=== PATIENT | male | born 1950 | race Caucasian/White ===

== ENCOUNTER 2021-07-02 17:03 | Emergency (ER) | payer MEDICARE, SELFPAY ==
--- NOTE | ~2021-07-02 | XR_ITS ---
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 A heterotopic ossification projects posterior to the olecranon on the lateral view of the distal humerus. There is soft tissue swelling of the elb ow. IMPRESSION: 1. Possible avulsion fracture of the olecranon. Reviewed, dictated and finalized at location A.
--- NOTE | ~2021-07-02 | XR_ITS ---
EXAMINATION: XR elbow RT min 3V INDICATION: Right elbow pain, initial encounter TECHNIQUE: Four views of the right elbow were obtained. COMPARISON: None available FINDINGS: A heterotopic ossification projects posterior to the olecranon on the lateral view of the d istal humerus. There is posterior soft tissue swelling of the elbow Olecranon. No joint effusion is identified. IMPRESSION: 1. Possible avulsion fracture of the olecranon. Reviewed, dictated and finalized at location A.
[2021-07-02 17:55] VITALS: BP 164/103; PULSE 77; RESP 16; TEMP 36.6; O2SAT 99
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
== END 2021-07-02 20:03 | disposition home or self-care (01) ==
PROVIDERS: Emergency Provider Emergency Medicine; PCP Internal Medicine
DX: S52.021A Displaced fracture of olecranon process without intraarticular extension of right ulna, initial encounter for closed fracture (principal); Z85.828 Personal history of other malignant neoplasm of skin
CPT/HCPCS: 73060; 73080; 99284; A4565

== ENCOUNTER → 2021-07-13 03:11 | Outpatient (CLI) | payer MEDICARE, SELFPAY ==
[2021-07-13 18:29] LABS: SARS-CoV-2 RNA PCR Positive
== END ==
PROVIDERS: PCP Internal Medicine; Visit Provider Physician Assistant
DX: U07.1 COVID-19 (principal)
CPT/HCPCS: C9803; U0003; U0005

== ENCOUNTER 2021-07-14 11:53 | Outpatient (RCR) | payer MEDICARE, SELFPAY ==
[2021-07-14] MEDS: ACETAMINOPHEN 325 MG TABLET 650 MG PO (13:45)
[2021-07-14] MEDS: FAMOTIDINE 20 MG TABLET PO (13:45)
[2021-07-14] MEDS: diphenhydrAMINE HCl CAP 25 MG CAPSULE PO (13:45)
[2021-07-14 14:04] VITALS: BP 162/92; PULSE 67; RESP 18; TEMP 36.8; O2SAT 98
[2021-07-14 15:04] VITALS: BP 163/91
== END 2021-07-14 15:53 | disposition home or self-care (01) ==
LOC: AMCINF 11:53
PROVIDERS: PCP Physician Assistant; Referring Provider Physician Assistant; Visit Provider Internal Medicine Hematology & Oncology
DX: Z23 Encounter for immunization (principal); U07.1 COVID-19; I10 Essential (primary) hypertension
CPT/HCPCS: A9270; M0243; Q0243

== ENCOUNTER 2021-09-23 08:34 | Outpatient (CLI) | payer MEDICARE, SELFPAY ==
--- NOTE | 2021-09-23 08:46 | ECHO_ITS ---
Patient Info Name: Ruy Feliz Age: 71 years : 1950 Gender: Male Ht: 74 in Wt: 215 lbs BSA: 2.27 m2 HR: 65 bpm BP: 164 / 103 mmHg Technical Quality: Good Exam Date: 09/23/2021 8:59 AM Exam Location: [facility] Patient Status: Outpatient Admit Date: 09/23/2021 Staff Ordering Physician: Rashad De La Cruz DO Cleater: Rhona Sutton RDCS Attending Provider: Rashad De La Cruz DO Referring Physician: Dorothy MASON; Exam Type: CA echo doppler color flow Study Info Indications I10 - Essential (primary) hypertension Complete two-dimensional, color flow and Doppler transthoracic echocardiogram is performed. Summary 1. Complete two-dimensional, color flow and Doppler transthoracic echocardiogram is performed. 2. Left ventricular chamber dimension is normal. 3. Left ventricular systolic function is normal, estimated at 60-65%. 4. The left ventricular diastolic function is grade I diastolic dysfunction. 5. E/e' 8 is minimally elevated. 6. Global longitudinal strain is abnormal at -13.5%. 7. There is mild aortic valve sclerosis. 8. There is mild mitral valve regurgitation. 9. There is trace tricuspid valve regurgitation. 10. No pulmonary hypertension, estimated pulmonary arterial systolic pressure is 25 mmHg. Left Ventricle E/e' 8 is minimally elevated. Global longitudinal strain is abnormal at -13.5%. Left ventricular chamber dimension is normal. Left ventricular systolic function is normal, estimated at 60-65%. The left ventricular diastolic function is grade I diastolic dysfunction. Right Ventricle Right ventricular chamber dimension is normal. Right ventricular systolic function is normal. Left Atria Left atrial chamber dimension is normal. Right Atria Right atrial chamber dimension is normal. Aortic Valve The aortic valve is trileaflet. There is mild aortic valve sclerosis. There is no aortic valve stenosis. There is no aortic valve regurgitation. Pulmonic Valve There is no pulmonic regurgitation. Mitral Valve There is no mitral valve stenosis. There is mild mitral valve regurgitation. Tricuspid Valve There is trace tricuspid valve regurgitation. No pulmonary hypertension, estimated pulmonary arterial systolic pressure is 25 mmHg. Pericardium/Pleural There is no pericardial effusion. Inferior Vena Cava Normal inferior vena cava with >50% collapse upon inspiration consistent with normal right atrial pressure, 5 mmHg. Aorta The aortic root size at the sinus of Valsalva is normal. Left Ventricular Outflow Tract Name Value Normal LVOT 2D LVOT Diameter 2.1 cm LVOT Doppler LVOT Peak Gradient 5 mmHg LVOT Mean Gradient 2 mmHg LVOT VTI 21 cm LVOT VTI/AV VTI Ratio 1.0 LVOT Stroke Volume 75 ml LVOT CO 15.1 l/min LVOT CI 6.7 l/min/m2 Pulmonic Valve Nam
== END 2021-09-23 08:35 | disposition home or self-care (01) ==
LOC: ANHCARD 08:36
PROVIDERS: PCP Internal Medicine; Visit Provider Internal Medicine
DX: I10 Essential (primary) hypertension (principal)
CPT/HCPCS: 93306

== ENCOUNTER 2022-04-26 02:19 | Day surgery (SDC) | payer MEDICARE, SELFPAY ==
[2022-04-11 15:24] VITALS: BMI 27.7
[2022-04-26 07:45] VITALS: BP 134/77; PULSE 61; RESP 18; TEMP 36.2; O2SAT 98
[2022-04-26] MEDS: LACTATED RINGERS 1,000 ML 150 ML IV CONT (07:52)
--- NOTE | 2022-04-26 08:03 | PM.IMHP ---
H&P: HPI History of Present Illness Date/Time: 04/26/22 08:03 Chief Complaint: History of colon polyps. Narrative: This is a 71-year-old white male patient presents for screening colonoscopy. Patient has a prior history of colon polyps. Most recently 2015. Patient reports his current weight appetite and bowel movements are normal. Patient denies abdominal pain. He has had no bleeding. Family history noncontributory. Review of Systems Review of Systems: Review of systems noncontributory. [facility] Past Medical History Medical History (Updated 04/26/22 @ 08:04 by Osvaldo Gallegos MD) Squamous cell skin cancer (~12/2019) Social History Social History Smoking status: Never smoker Second hand tobacco smoke exposure: No Alcohol intake: current Drinks per week: 20 Alcohol use details: BEERS Substance use: never Substance use type: does not use Living arrangements: with family Spiritual care concerns: No Meds Home Medications and Allergies Home Medications Medication Instructions Recorded Confirmed Type calcium polycarbophil 625 mg 1,250 mg PO BID 01/21/20 04/11/22 History tablet (FiberCon) sildenafil 50 mg tablet (Viagra) 50 mg PO DAILY PRN Erectile 01/21/20 04/11/22 History Dysfunction hydrocodone 5 mg-acetaminophen 325 1 tablet PO Q6H PRN pain #10 tabs 07/02/21 04/11/22 Rx mg tablet hydrochlorothiazide 12.5 mg tablet 25 mg PO DAILY #180 tabs 12/13/21 04/11/22 Rx diltiazem HCl 360 mg capsule,24 360 mg PO DAILY #90 caps 12/15/21 04/11/22 Rx hr,extended release tamsulosin 0.4 mg capsule 0.4 mg PO DAILY #90 caps 12/15/21 04/11/22 Rx fexofenadine 60 mg tablet (Olivia 60 mg PO Q12H 01/28/22 04/11/22 History Allergy) lisinopril 40 mg tablet 40 mg PO DAILY #90 tabs 04/17/22 04/26/22 Rx Allergies Allergy/AdvReac Type Severity Reaction Status Date / Time No Known Allergies Allergy NONE Verified 04/26/22 07:44 Vital Signs Vital Signs - 24 hr 08/16/22 07:45 Temperature 97.2 F L Pulse Rate 61 Respiratory Rate 18 Blood Pressure 134/77 Pulse Oximetry 98 Oxygen Delivery Room Air Exam Narrative: Physical exam reveals patient to be alert. Vital signs stable. HEENT exam is unremarkable. Patient is anicteric. Lungs are clear to auscultation and percussion. Heart is without murmur or extra sounds. Abdominal exam bowel sounds present soft nontender with no organomegaly. Digital external rectal exam is normal. Assessment and Plan Assessment and plan (1) History of colon polyps: Code(s): Z86.010 - Personal history of colonic polyps Status: Acute Assessment and Plan: Patient has a history of colon polyps. Removed from the colon by colonoscopy 2016. Plan is for surveillance colonoscopy now. Consider this at 5 year intervals in the future.
[2022-04-26] MEDS: SIMETHICONE ORAL SUSPENSION 20 MG/0.3 ML 30 ML BOTTLE 0.6 ML IRRIGATION (08:29)
[2022-04-26 08:40] VITALS: BP 93/56; PULSE 55; RESP 18; O2SAT 94
[2022-04-26 08:50] VITALS: BP 96/49; PULSE 55; RESP 18; O2SAT 96
[2022-04-26 09:00] VITALS: BP 88/47; PULSE 58; RESP 18; O2SAT 96
[2022-04-26 09:10] VITALS: BP 83/49; PULSE 50; RESP 18; O2SAT 96
[2022-04-26 09:20] VITALS: BP 88/55; PULSE 59; RESP 18; O2SAT 96
--- NOTE | 2022-04-26 15:19 | SUR.PHASEII ---
1515 Patient's called Jessica regarding patient's condition after being discharged. Jessica stated that her has a really sore throat and is having difficulty swallowing and is running a 102 fever. She mentioned that they were told the patient had a lot of secretions and he had a bronchospasm during the procedure. I instructed Jessica to take him to the nearest ER. Jessica asked what they could do for him. I offered to call and talk with the anesthesiologist and see what he had to say. I told Jessica I would call her back as soon as I finished talking with him. 1519 Dr. Evans called and spoke with him regarding patient's condition and the discussion I had with the spouse Jessica. Dr. Evans looked at the patient's anesthesia record from today and we discussed the patient having a laryngospasm during the case. Dr. Evans encouraged me to tell the spouse if she was concerned and if he was running a 102 fever then she should take him to the nearest ER. 1523 I call Jessica back and left a message on her voicemail to call me back. 1525 I called Jessica again. Jessica said she re-took her temperature with a skin therometer and she got a reading of 98.9. I asked her if she felt his forehead if he felt like he was hot or running a fever. She said he didn't feel hot to her. We discussed his condition including his sore throat and the reasons why his throat was sore and some therapies to help like taking ice chips, tylenol for discomfort, drinking cool water liquids. Jessica said her told her that he took and Olivia before his procedure today. She said he is still have a lot of secretions. I encouraged Jessica to take him the to the nearest ER if he spiked a fever or continued to run a fever or if his condition worsened. Jessica said she would watch him and see how he does and at this time they would hold of with going to the ER. I told her we would call them tomorrow to check on him..
== END 2022-04-26 09:37 | disposition home or self-care (01) ==
PROVIDERS: PCP Internal Medicine; Visit Provider Internal Medicine Gastroenterology
PROC: 0DJD8ZZ Inspection of Lower Intestinal Tract, Via Natural or Artificial Opening Endoscopic (ICD-10-PCS; CPT 45378; principal; 2022-04-26 09:00)
DX: Z12.11 Encounter for screening for malignant neoplasm of colon (principal); K64.8 Other hemorrhoids; K57.30 Diverticulosis of large intestine without perforation or abscess without bleeding; Z86.010 Personal history of colon polyps
CPT/HCPCS: G0105; J2704; J7120

== ENCOUNTER 2022-05-02 11:21 | Outpatient (CLI) | payer MEDICARE, SELFPAY ==
--- NOTE | ~2022-05-02 | XR_ITS ---
EXAMINATION: XR chest 2V DATE: 05/02/2022 11:53 INDICATION: Cough. TECHNIQUE: Frontal and lateral views of the chest were obtained. COMPARISON: None. FINDINGS: There is mild atelectasis at the lung bases. No pleural effusion or pneumothorax. The heart size is normal. IMPRESSION: 1. Mild atelectasis at the lung bases. Reviewed, dictated and finalized at location A.
== END 2022-05-02 11:22 | disposition home or self-care (01) ==
LOC: ANHIMG 11:24
PROVIDERS: PCP Internal Medicine; Visit Provider Internal Medicine
DX: R05.9 Cough, unspecified (principal); J98.11 Atelectasis
CPT/HCPCS: 71046

== ENCOUNTER 2023-07-25 07:53 | Outpatient (CLI) | payer MEDICARE, SELFPAY ==
--- NOTE | ~2023-07-25 | US_ITS ---
EXAMINATION: US soft tissue groin LT DATE: 07/25/2023 08:32 INDICATION: Unilateral inguinal hernia without obstruction. Left groin lump. TECHNIQUE: Multiple grayscale and Doppler ultrasound images of the left groin were obtained. COMPARISON: None FINDINGS: There is a left inguinal hernia containing fat. IMPRESSION: 1. Left inguinal hernia containing fat. Reviewed, dictated and finalized at location A. 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
== END 2023-07-25 07:54 | disposition home or self-care (01) ==
LOC: ANHIMG 07:57
PROVIDERS: PCP Internal Medicine; Visit Provider Physician Assistant
DX: K40.90 Unilateral inguinal hernia, without obstruction or gangrene, not specified as recurrent (principal)
CPT/HCPCS: 76882

== ENCOUNTER 2024-02-25 08:15 | Emergency (ER) | payer MEDICARE, SELFPAY ==
[2024-02-25 08:58] VITALS: BP 115/75; PULSE 55; RESP 18; TEMP 36.2; O2SAT 96
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
[2024-02-25] MEDS: TETANUS,DIPHTHERIA,AC PERTUSSIS ADULT (0.5 ML) BOOSTRIX IM (09:25)
== END 2024-02-25 09:34 | disposition home or self-care (01) ==
PROVIDERS: Emergency Provider Nurse Practitioner; PCP Internal Medicine
DX: S51.002A Unspecified open wound of left elbow, initial encounter (principal); W22.8XXA Striking against or struck by other objects, initial encounter; Z23 Encounter for immunization; Z85.828 Personal history of other malignant neoplasm of skin
CPT/HCPCS: 90471; 90715; 99213; G0463

== ENCOUNTER 2025-03-17 09:00 | Outpatient (CLI) | payer MEDICARE, SELFPAY ==
--- OUTSIDE RECORDS SUMMARY | 2025-03-17 09:13 | XMS_ITS | Patient Health Record ---
Author Organization [facility] Address [address] [place] [address] Care Team Providers Care Demolition Engineer Name Role Phone Chavo Farmer Primary Care Provider Reason For Referral No Information Immunizations Vaccine Route Administration Date Status Comme nts COVID-19 Moderna 2nd IM Intramuscular 11/12/2020 Administered COVID-19 Moderna 1ST IM Intramuscular 10/15/2020 Administered EUA provided. Screening and consent reviewed and signed. Pt tolerated well. Plan Of Treatment No Information Insurance Providers Payer Name Payer Address Payer Phone Subscriber Number Group Number Insured Name Patient Relationship to Insured Coverage Start Date Coverage End Date MEDICARE PART A [address] [place] [id number] [id number] Ruy Feliz Self - patient is the insured 6
--- OUTSIDE RECORDS SUMMARY | 2025-03-17 09:13 | XMS_ITS | Clinical Summary ---
Author Organization [facility] Address [address] [place] [address] Phone Care Team Providers Care Offshore Diver Name Role Phone Rashad De La Cruz DO Primary Care Provider [phone] AshlyOsvaldo wheeler DO Unavailable [phone] Allergies No known active allergies Medications polyethylene glycol (MIRALAX) Powder Use entire 255g bottle with 64oz of clear liquid as directed for colonoscopy prep. 255 g 0 7 Active LISINOPRIL PO Take by mouth. A ctive DilTIAZem HCl ER Beads (TAZTIA XT PO) Take by mouth. Active TAMSULOSIN HCL PO Take by mouth. Activ e Loratadine-Pseu doephedrine (CLARITIN-D 12 HOUR PO) Take by mouth. Activ e Immunizations Immunization Administration Dates Next Due Covid-19, Mrna, Lnp-s, PF, 1 00 mcg/0.5 mL Dose (Moderna) 11/12/2020,10/15/2020 Family History Medical History Relation Name Comments Cancer Brother Pancreatic Lung Cancer Father Hypertension Mother Relation Name Status Comments Brother Father Mother Social History Tobacco Use Types Packs/Day Years Used Date Smoking Tobacco: Never Smokeless Tobacco: Never Alcohol Use Standard Drinks/Week Comments Yes 0 (1 standard drink = 0.6 oz pur e alcohol) Sex and Gender Information Value Date Recorded Sex Assigned at Not on file Legal Sex Male 12:03 AM CDT Gender Identity Not on file Sexual Orientation Not on file Plan of Treatment Health Maintenance Due Date Last Done Comments Hepatitis C Virus (HCV) Screening 1950 TdaP Immunization 1950 Cologuard 1996 Immunochemical Fecal Occult Blood 1996 Colonoscopy 02/01/2022 02/01/2017 Colorectal Cancer Screening 02/01/2022 SARS-COV-2 Immunization ( season) 2024 02/11/2022, 09/29/2021, 11/12/2020, Additional history exists Influenza Immunization (#1) 2025 05/12/2020 Respiratory Syncytial Virus (RSV) Immunization (Adult) (1 - 1-dose 75+ series) 2026 DTaP/Tdap/Td Immunization Discontinued 03/24/2013 Pneumococcal Immunization (50+ years) Completed 07/16/2020, 06/20/2019 Pneumococcal Immunization Combined Discontinued 07/16/2020, 06/20/2019 Zoster Immunization Completed 08/18/2020, 0 Hepatitis B Immunization Aged Out No longer eligible based on patient's age to complete this topic Human Papillomavirus (HPV) Immunization Aged Out No longer eligible based on patient's age to complete this topic Meningococcal Immunization (ACWY) Aged Out No longer eligible based on patient's age to complete this topic Rotavirus Immunization Aged Out No lo nger eligible based on patient's age to complete this topic Procedures Procedure Name Priority Date/Time Associated Diagnosis Comments COLONOSCOPY Routine 02/01/2017 from Last 3 Months or Most Recently Relevant to Health Maintenance Results * COLONOSCOPY (02/01/2017) Rashad De La Cruz DO PROCEDURE/MINOR SURGICAL OR DERABLES Final Result from Last 3 Months or Most Recently Relevant to Health Maintenance Insurance MEDICARE [facility] Care Teams Offshore Diver Relationship Specialty Start Date End Date Rashad De La Cruz DO [address] [place] [address] PCP - General Internal Medicine 09/29/16 Osvaldo Jenkins DO [address] [place] [address] Consulting Physician Gastroenterology 02/01/17
--- NOTE | 2025-03-17 09:25 | ECG_ITS ---
Test Date: 2025-03-17 09:36:21 Measurements Intervals [place] Rate: 51 P: 0 ME: 0 QRS: -54 QRSD: 132 T: -20 QT: 441 QTc: 408 Interpretive Statements sinus bradycardia FIRST DEGREE AV BLOCK INTRAVENTRICULAR CONDUCTION DELAY [130+ ms QRS DURATION] No previous ECG available for comparison Electronically Signed On 03-17-2025 22:20:12 CDT by Santa Melo M.D.
[2025-03-17 09:53] LABS: Anion Gap 9 mmol/L (4-12); Blood Urea Nitrogen 12 mg/dL (9-20); Calcium 9.5 mg/dL (8.4-10.2); Carbon Dioxide 26 mmol/L (22-30); Chloride 99 mmol/L (98-107); Estimated Glomerular Filt Rate 54; Glucose 111 mg/dL (65-110); Potassium 4.2 mmol/L (3.4-5.0); Sodium 134 mmol/L (137-145)
[2025-03-17 09:57] LABS: INR 1.1; Prothrombin Time 14.5 Seconds (11.1-14.7)
[2025-03-17 09:58] LABS: Partial Thromboplastin Time 28.8 Seconds (22.3-36.8)
== END 2025-03-17 09:01 | disposition home or self-care (01) ==
LOC: ANHSURGERY 09:03
PROVIDERS: Anesthesiology; PCP Internal Medicine; Visit Provider Surgery
DX: K40.90 Unilateral inguinal hernia, without obstruction or gangrene, not specified as recurrent (principal); E78.49 Other hyperlipidemia; Z01.818 Encounter for other preprocedural examination; I12.9 Hypertensive chronic kidney disease with stage 1 through stage 4 chronic kidney disease, or unspecified chronic kidney disease; N18.31 Chronic kidney disease, stage 3a
CPT/HCPCS: 36415; 80048; 85610; 85730; 86850; 86900; 86901; 93005

== ENCOUNTER 2025-03-18 02:43 | Day surgery (SDC) | payer MEDICARE, SELFPAY ==
[2025-03-13 09:24] VITALS: BMI 29.4
--- NOTE | 2025-03-13 09:34 | PC.NURSE ---
Report to the Outpatient Waiting Room, entrance under the green pavilion located off [facility], at time __11:00am on date ___03/18/25____. Planned Procedure Time: __1:00pm .? Time changes happen often and if your time is changed the preop area will call you the afternoon before. - You and your visitor will be asked to self-screen and do not enter if you have any COVID symptoms. Please call surgeon if you need to reschedule. - A mask is optional within the hospital at this time. Patients may have clear liquids (water, carbonated beverages, clear teas, apple juice) until 3 hours prior to surgery with a maximum of 20 ounces. - No food from midnight until time of surgery and no smoking, or chewing tobacco (or any form of nicotine). No chewing gum, candy or mints. (10:00am) Take only the following medications with a SIP of water on the morning of surgery: Tylenol if needed DO NOT STOP ANY OF YOUR OTHER PRESCRIPTION MEDICATIONS PRIOR TO SURGERY EXCEPT THE FOLLOWING Hold all vitamins and supplements for 3 days per anesthesiologist. Date of last dose 03/14/25 Medications to discontinue per physician NONE Date to take last dose NONE Please no make-up, nail kazakh, hairspray, perfume, deodorant, or body powder the day of surgery.? No jewelry (including any body piercings) or valuables the day of surgery, leave them at home.? Please take a shower or bath the night before, or the morning of, surgery with an antibacterial soap.? Wear comfortable, loose fitting clothing.? - Jewelry must be removed prior to entering the operating room.? Rings and piercings that are not removed may be cut off. - The hospital will not accept responsibility for valuables.? - Please leave all valuables, including medications, at home the day of surgery. If you are going home after surgery, a licensed driver medic must drive you home.? - NO public transportation without another adult if you receive anesthesia. - We recommend that an adult stay with you for 24 hours following discharge. - We also recommend that you do not drive, make important decision, drink alcoholic beverages, or take any drugs that were not prescribed by your health care provider for at least 24 hours after your discharge time. Follow any additional instructions given to you from your surgeon. Telephone instructions given to ___Patient and asked if any additional questions and then verbalized understanding. Patient advised to call surgeon office or pre surgery nurse liaison [phone] if any additional questions.
[2025-03-18] VITALS (12 sets, daily range): BP systolic 121–151; BP diastolic 71–95; PULSE 55–73; RESP 14–19; TEMP 36.1–36.9; O2SAT 95–100; BMI 28.7
--- OUTSIDE RECORDS SUMMARY | 2025-03-18 02:46 | XMS_ITS | Encounter Summary ---
Author Organization 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 Gender Identity Not on file Sexual Orientation Not on file documented as of this encounter Plan of Treatment Not on file documented as of this encounter Procedures Procedure Name Priority Date/Time Associated Diagnosis Comments DERMATOPATHOLOGY Routine 11/28/2019 12:0 0 AM CDT documented in this encounter Results * DERMATOPATHOLOGY (11/28/2019 12:00 AM CDT) Case Report Dermatopathology Report Case: [id number] Authorizing Provider: Serafin Dunn MD Collected: 11/28/2019 12:00 AM Ordering Location: [facility] DermPath Lab Received: 11/28/2019 02:13 PM Pathologist: Sanna Thornton MD Specimen: Skin, left lower leg 0 1:31 PM CDT DERMATOPATHOLOGY LABORATORY Final Diagnosis Specimen A. SKIN, left lower leg: SQUAMOUS CELL CARCINOMA, WELL DIFFERENTIATED (C44.729) 0 1:31 PM CDT DERMATOPATHOLOGY LABORATORY at 1331 CDT Clinical History SCCA. Path # [id number]. 0 1:31 PM CDT DERMATOPATHOLOGY LABORATORY Gross Description Specimen A: Received is one formalin filled container labeled with the patient's name and designated left lower leg. The specimen consists of a shave biopsy measuring [id number]. Jar 0. 0 1:31 PM CDT DERMATOPATHOLOGY LABORATORY Microscopic Description Specimen A. SKIN, left lower leg: Arising in the epidermis and extending into the dermis there are irregularly shaped aggregates of keratinocytes showing evidence of premature cornification. 0 1:31 PM CDT DERMATOPATHOLOGY LABORATORY Disclaimer An external and internal positive and negative controls are appropriate for the histochemical, immunohistochemical and immunofluorescence stain(s) in this case (if any), except where stated explicitly. The performance characteristics of the stain(s) cited in this report were developed and its performance characteristic determined by the Dermatopathology Laboratory at [facility], directed by Dr. Winnie Harvey. These tests need not be, and therefore are not, approved by the [place] Food and Drug Administration. The tests are used for clinical purposes. Billing Codes Specimen Charges Stain Charges 08677 1 0 1:31 PM CDT DERMATOPATHOLOGY LABORATORY Embedded Images 0 1:31 PM CDT DERMATOPATHOLOGY LABORATORY Pathology/Cytolog y TISSUE SPECIMEN FROM SKIN / Unknown 11/28/2019 11/28/2019 2:13 PM CDT us Serafin Dunn MD LAB - PATHOLOGY/CYTOLOGY ORDER DIMA Final Result DERMATOPATHOLOGY LABORATORY [facility] - Department of Dermatology [address]th [place] [address], [facility] [phone] documented in this encounter Visit Diagnoses Not on filedocumented in this encounter Care Teams Roast Master Relationship Specialty Start Date End Date Rashad De La Cruz DO [address] [place] [address] PCP - General 10/09/18 documented as of this encounter
--- OUTSIDE RECORDS SUMMARY | 2025-03-18 02:46 | XMS_ITS | Encounter Summary ---
Author Organization [facility] Address [address] [place] [address] Care Team Providers Care Street Car Inspector Name Role Phone Rashad De La Cruz DO Primary Care Provider Encounter Details Date Type Department Care Team (Late st Contact Info) Description 02/18/2020 Lab Requisition [facility] DermPath Lab [address] [place] [address] Serafin Dunn MD [address] [place] [place] [address] Social History Tobacco Use Types Packs/Day Years Used Date Smoking Tobacco: Never Assessed Sex and Gender Information Value Date Recorded Sex Assigned at Not on file Legal Sex Male 8:24 AM [employer] Gender Identity Not on file Sexual Orientation Not on file documented as of this encounter Plan of Treatment Not on file documented as of this encounter Procedures Procedure Name Priority Date/Time Associated Diagnosis Comments DERMATOPATHOLOGY Routine 02/14/2020 12:0 0 AM CDT documented in this encounter Results * DERMATOPATHOLOGY (02/14/2020 12:00 AM CDT) Case Report Dermatopathology Report Case: [id number] Authorizing Provider: Serafin Dunn MD Collected: 02/14/2020 12:00 AM Ordering Location: [facility] DermPath Lab Received: 02/18/2020 09:48 AM Pathologist: Katie Lu MD Specimen: Skin, right thigh 0 1:44 PM CDT DERMATOPATHOLOGY LABORATORY Final Diagnosis Specimen A. SKIN, right thigh: SQUAMOUS CELL CARCINOMA, WELL DIFFERENTIATED (C44.722) 0 1:44 PM CDT DERMATOPATHOLOGY LABORATORY at 1344 CDT Clinical History [facility]A vs [facility]. Path# [id number] 0 1:44 PM CDT DERMATOPATHOLOGY LABORATORY Gross Description Specimen A: Received is one formalin filled container labeled with the patient's name and designated right thigh. The specimen consists of a shave biopsy measuring 8x7x4 mm, bisected. Jar 0. 0 1:44 PM CDT DERMATOPATHOLOGY LABORATORY Microscopic Description Specimen A. SKIN, right thigh: Arising in the epidermis and extending into the dermis there are irregularly shaped aggregates of keratinocytes showing evidence of premature cornification. 0 1:44 PM CDT DERMATOPATHOLOGY LABORATORY Disclaimer An external and internal positive and negative controls are appropriate for the histochemical, immunohistochemical and immunofluorescence stain(s) in this case (if any), except where stated explicitly. The performance characteristics of the stain(s) cited in this report were developed and its performance characteristic determined by the Dermatopathology Laboratory at [facility], directed by Dr. Winnie Harvey. These tests need not be, and therefore are not, approved by the [place] Food and Drug Administration. The tests are used for clinical purposes. Billing Codes Specimen Charges Stain Charges 07747 1 0 1:44 PM CDT DERMATOPATHOLOGY LABORATORY Embedded Images 0 1:44 PM CDT DERMATOPATHOLOGY LABORATORY Pathology/Cytolog y TISSUE SPECIMEN FROM SKIN / Unknown 02/14/2020 02/18/2020 9:48 AM CDT Serafin Dunn MD LAB - PATHOLOGY/CYTOLOGY ORDER DIMA Final Result DERMATOPATHOLOGY LABORATORY [facility] - Department of Dermatology [address] [facility] [address], [facility] [phone] documented in this encounter Visit Diagnoses Not on filedocumented in this encounter Care Teams Street Car Inspector Relationship Specialty Start Date End Date Rashad De La Cruz DO [address] [place] [address] PCP - General 10/09/18 documented as of this encounter
--- OUTSIDE RECORDS SUMMARY | 2025-03-18 02:46 | XMS_ITS | Clinical Summary ---
Author Organization [facility] Address [address] [place] [address] Phone Care Team Providers Care Mechanical Shovel Operator Name Role Phone Rashad De La Cruz DO Primary Care Provider AshlyOsvaldo wheeler DO Unavailable [phone] Allergies No known active allergies Medications [...] Recently Relevant to Health Maintenance Insurance MEDICARE [facility] Care Teams Mechanical Shovel Operator Relationship Specialty Start Date End Date Rashad De La Cruz DO [address] [place] [address] PCP - General Internal Medicine 09/29/16 Osvaldo Jenkins DO [address] [place] [address] Consulting Physician Gastroenterology 02/01/17
--- OUTSIDE RECORDS SUMMARY | 2025-03-18 02:46 | XMS_ITS | Clinical Summary ---
Author Organization [facility] Address [address] [place] [address] Care Team Providers Care Double Bottom Driver Name Role Phone Rashad De La Cruz DO Primary Care Provider [phone] Source Comments [facility] [employer],non-owned Affiliates and Associated Physician Practices is amultiple site organization consisting of ambulatory clinics and hospital sitesin [place], [place], [place] and [place]. This disclosure is being madepursuant to the Care Everywhere program and may not contain all information available regarding this patient. 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 Gender Identity Not on file Sexual Orientation Not on file Plan of Treatment Health Maintenance Due Date Last Done Comments COLOGUARD (AGES 45-75) - COL ON CA SCREENING 1950 COLON MONITORING 1950 COLONOSCOPY - COLON CA SCREENING 1950 CT COLONOGRAPHY - COLON CA SCREENING 1950 Colorectal Cancer Screening 1950 FIT - COLON CA SCREENING 1950 FLEX SIG - COLON CA SCREENING 1950 LIPID TESTING 1950 MEDICARE AWV 12 MONTHS 1950 HEPATITIS C SCREENING 04/25/1969 DTAP/TDAP/TD VACCINES (1 - Tdap) 1970 PNEUMOCOCCAL VACCINE 50+ (1 of 1 - PCV) 2001 ZOSTER VACCINE (1 of 2) 2001 COVID-19 VACCINE ( - 2023-2 5 season) 2024 DEPRESSION SCREENING 09/11/2024 INFLUENZA VACCINE (#1) 2025 Respiratory Syncytial Virus (RSV) Vaccine Pt: or over 60 yrs (1 - 1-dose 75+ series) 2026 HEPATITIS B VACCINE Aged Out No longe r eligible based on patient's age to complete this topic HIB VACCINE Aged Out No longer eligi ble based on patient's age to complete this topic HPV VACCINE Aged Out No longer eligi ble based on patient's age to complete this topic MENINGOCOCCAL (Group B) VACC INE SHARED DECISION-MAKING Aged Out No longer eligibl e based on patient's age to complete this topic MENINGOCOCCAL GROUPS A/C/Y/W VACCINE Aged Out No longer eligible b ased on patient's age to complete this topic Insurance MEDICARE [facility] Address: [address] [place] [address] MEDICARE ANTHEM Care Teams Double Bottom Driver Relationship Specialty Start Date End Date Rashad De La Cruz DO [address] [place] [address] PCP - General 10/09/18
--- OUTSIDE RECORDS SUMMARY | 2025-03-18 02:46 | XMS_ITS | Patient Health Record ---
Author Organization [facility] Address [address] [place] [address] Care Team Providers Care Bumper Operator Name Role Phone Chavo Farmer Primary Care [...] A [address] [place] [address] [id number] Ruy Feliz Self - patient is the insured 6
--- OUTSIDE RECORDS SUMMARY | 2025-03-18 02:46 | XMS_ITS | Encounter Summary ---
Author Organization [facility] Address [address] [place] [address] Care Team Providers Care Hotel Administrative Assistant Name Role Phone Rashad De La Cruz DO Primary Care Provider Encounter Details Date Type Department Care Team (Late st Contact Info) Description 06/12/2023 Lab Requisition [facility] - DermPath Lab [address] [place] [id number] Serafin Dunn MD [address] [place] [address] Social History Tobacco Use Types Packs/Day Years Used Date Smoking Tobacco: Never Assessed Sex and Gender Information Value Date Recorded Sex Assigned at Not on file 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 DermPath Lab Received: 06/12/2023 04:26 PM Pathologist: Joanna Walker MD Specimen: Skin, right confucianism 12:59 PM CDT DERMATOPATHOLOGY LABORATORY Final Diagnosis Specimen A. SKIN, right confucianism: ACTINIC KERATOSIS, ERODED (L57.0) 12:59 PM CDT DERMATOPATHOLOGY LABORATORY at 1259 CDT Clinical History BCCA vs SCCA. Path# [id number] 12:59 PM CDT DERMATOPATHOLOGY LABORATORY Gross Description Specimen A: Received is one formalin filled container labeled with the patient's name and designated right confucianism. The specimen consists of a shave biopsy measuring 6x5x1 mm. Jar 0. 12:59 PM CDT DERMATOPATHOLOGY LABORATORY Microscopic Description Specimen A. SKIN, right confucianism: There is alternating orthokeratosis and parakeratosis. The epidermis is focally eroded. Along the undersurface of the epidermis, there are buds of atypical keratinocytes in a disorderly arrangement. 12:59 PM CDT DERMATOPATHOLOGY LABORATORY Disclaimer An external and internal positive and negative controls are appropriate for the histochemical, immunohistochemical and immunofluorescence stain(s) in this case (if any), except where stated explicitly. The performance characteristics of the stain(s) cited in this report were developed and its performance characteristic determined by the Dermatopathology Laboratory at [facility], directed by Dr. Winnie Harvey. These tests need not be, and therefore are not, approved by the [place] Food and Drug Administration. The tests are used for clinical purposes. Billing Codes Specimen Charges Stain Charges 59095 1 12:59 PM CDT DERMATOPATHOLOGY LABORATORY Embedded Images 12:59 PM CDT DERMATOPATHOLOGY LABORATORY Pathology/Cytolog y TISSUE SPECIMEN FROM SKIN / Unknown 06/12/2023 06/12/2023 4:26 PM CDT us Serafin Dunn MD LAB - PATHOLOGY/CYTOLOGY ORDER DIMA Final Result DERMATOPATHOLOGY LABORATORY [facility] - Department of Dermatology [address] [phone] documented in this encounter Visit Diagnoses Not on filedocumented in this encounter Care Teams Hotel Administrative Assistant Relationship Specialty Start Date End Date Rashad De La Cruz DO [address] [place] [address] PCP - General 10/09/18 documented as of this encounter
--- OUTSIDE RECORDS SUMMARY | 2025-03-18 02:46 | XMS_ITS | Encounter Summary ---
Author Organization [facility] Address [address] [place] [address] Care Team Providers Care Polymerization Supervisor Name Role Phone Rashad De La Cruz DO Primary Care Provider Encounter Details Date Type Department Care Team (Late st Contact Info) Description 09/27/2022 Lab Requisition [facility] DermPath Lab [address] [place] [address] Serafin Dunn MD [address] [place] [address] Social History Tobacco Use Types Packs/Day Years Used Date Smoking Tobacco: Never Assessed Sex and Gender Information Value Date Recorded Sex Assigned at Not on file 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 Gender Identity Not on file Sexual Orientation Not on file documented as of this encounter Plan of Treatment Not on file documented as of this encounter Procedures Procedure Name Priority Date/Time Associated Diagnosis Comments DERMATOPATHOLOGY Routine 09/26/2022 12:0 0 AM POACHER WRINGER OPERATOR documented in this encounter Results * DERMATOPATHOLOGY (09/26/2022 12:00 AM POACHER WRINGER OPERATOR) Case Report Dermatopathology Report Case: [id number] Authorizing Provider: Serafin Dunn MD Collected: 09/26/2022 12:00 AM Ordering Location: [facility] DermPath Lab Received: 09/27/2022 07:22 AM Pathologist: Joanna Walker MD Specimen: Skin, right lat canthus 3 1:40 PM POACHER WRINGER OPERATOR DERMATOPATHOLOGY LABORATORY Final Diagnosis Specimen A. SKIN, right lat canthus: SQUAMOUS CELL CARCINOMA IN SITU, WITH ADNEXAL EXTENSION, PRESENT AT THE BASE OF THE SPECIMEN (D04.39) (see microscopic description and comment) 3 1:40 PM [facility] DERMATOPATHOLOGY LABORATORY at 1340 POACHER WRINGER OPERATOR Clinical History [place] vs BCCA vs SCCA Path# [id number] 3 1:40 PM [facility] DERMATOPATHOLOGY LABORATORY Gross Description Specimen A: Received is one formalin filled container labeled with the patient's name and designated right lat canthus. The specimen consists of a shave biopsy measuring 7x4x1 mm. Jar 0. 3 1:40 PM [facility] DERMATOPATHOLOGY LABORATORY Microscopic Description Specimen A. SKIN, right lat canthus: The epidermis shows parakeratosis, full thickness disorderly maturation of keratinocytes, mitoses at different levels, and dyskeratotic cells. The proliferation extends down adnexal structures. The lesion extends to the base of the biopsy. Additional deeper sections were obtained and reviewed. COMMENT: An invasive squamous cell carcinoma cannot be ruled out. 3 1:40 PM [facility] DERMATOPATHOLOGY LABORATORY Disclaimer An external and internal positive and negative controls are appropriate for the histochemical, immunohistochemical and immunofluorescence stain(s) in this case (if any), except where stated explicitly. The performance characteristics of the stain(s) cited in this report were developed and its performance characteristic determined by the Dermatopathology Laboratory at [facility], directed by Dr. Winnie Harvey. These tests need not be, and therefore are not, approved by the [place] Food and Drug Administration. The tests are used for clinical purposes. Billing Codes Specimen Charges Stain Charges 11376 1 3 1:40 PM [facility] DERMATOPATHOLOGY LABORATORY Embedded Images 3 1:40 PM [facility] DERMATOPATHOLOGY LABORATORY Pathology/Cytolog y TISSUE SPECIMEN FROM SKIN / Unknown 09/26/2022 09/27/2022 7:22 AM POACHER WRINGER OPERATOR us Serafin Dunn MD LAB - PATHOLOGY/CYTOLOGY ORDER DIMA Final Result DERMATOPATHOLOGY LABORATORY [facility] - Department of Dermatology [address], [address] [phone] documented in this encounter Visit Diagnoses Not on filedocumented in this encounter Care Teams Polymerization Supervisor Relationship Specialty Start Date End Date Rashad De La Cruz DO [address] [facility] [address] [address] [place] [address] PCP - General 10/09/18 documented as of this encounter
--- OUTSIDE RECORDS SUMMARY | 2025-03-18 02:46 | XMS_ITS | Clinical Summary ---
Author Organization [facility] Address [facility] [place] [address] Care Team Providers Care Rod Finisher Name Role Phone Unavailable Primary Care Provider Unavailabl e Social History Tobacco Use Types Packs/Day Years Used Date Smoking Tobacco: Never Assessed Sex and Gender Information Value Date Recorded Sex Assigned at Not on file Legal Sex Male 8:13 PM CDT Gender Identity Not on file Sexual Orientation Not on file Plan of Treatment Health Maintenance Due Date Last Done Comments Colorectal Cancer Screening Colonoscopy (10 Years) 1951 Hepatitis C 1969 DTaP, Tdap and Td Vaccines ( 1 - Tdap) 1970 Pneumococcal Vaccine: 50+ Ye ars (1 of 1 - PCV) 2001 Zoster Vaccines (1 of 2) 2001 COVID-19 Vaccine ( - 2023-2 5 season) 2024 RSV Immunization or 60+ Years (1 - 1-dose 75+ series) 2026 Meningococcal B Vaccine Aged Out No l onger eligible based on patient's age to complete this topic Meningococcal Vaccine Aged Out No tino ashley eligible based on patient's age to complete this topic RSV Immunizations Under 20 Months Aged Out No longer eligible based on patient's age to complete this topic
--- OUTSIDE RECORDS SUMMARY | 2025-03-18 02:46 | XMS_ITS | Encounter Summary ---
Author Organization [facility] Address [address] [place] [address] Care Team Providers Care Head Up Operator Name Role Phone Rashad De La Cruz DO Primary Care Provider Encounter Details Date Type Department Care Team (Late st Contact Info) Description 06/19/2020 Lab Requisition [facility] DermPath Lab [address] [place] [address] Serafin Dunn MD [address] [place] [address] Social History Tobacco Use Types Packs/Day Years Used Date Smoking Tobacco: Never Assessed Sex and Gender Information Value Date Recorded Sex Assigned at Not on file 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 Gender Identity Not on file Sexual Orientation Not on file documented as of this encounter Plan of Treatment Not on file documented as of this encounter Procedures Procedure Name Priority Date/Time Associated Diagnosis Comments DERMATOPATHOLOGY Routine 06/18/2020 12:0 0 AM CDT documented in this encounter Results * DERMATOPATHOLOGY (06/18/2020 12:00 AM CDT) Case Report Dermatopathology Report Case: [id number] Authorizing Provider: Serafin Dunn MD Collected: 06/18/2020 12:00 AM Ordering Location: [facility] Derm[facility] Lab Received: 06/19/2020 07:53 AM Pathologist: Katie Lu MD Specimens: A) - Skin, right proximal forearm B) - Skin, rgiht distal thigh 0 1:56 PM CDT DERMATOPATHOLOGY LABORATORY Final Diagnosis Specimen A. SKIN, right proximal forearm: SQUAMOUS CELL CARCINOMA, WELL DIFFERENTIATED (C44.622) Specimen B. SKIN, rgiht distal thigh: SQUAMOUS CELL CARCINOMA, WELL DIFFERENTIATED (C44.722) NOT PRESENT AT MARGIN DERMAL SCAR (L90.5) 0 1:56 PM CDT DERMATOPATHOLOGY LABORATORY at 1356 CDT Clinical History A: SCCA.path#[id number] B: Biopsy proven. Squamous proliferation. Path#[id number] 0 1:56 PM CDT DERMATOPATHOLOGY LABORATORY Gross Description Specimen A: Received is one formalin filled container labeled with the patient's name and designated right proximal forearm. The specimen consists of a shave biopsy measuring 26b78a3 mm. Jar 0. Specimen B: Received is one formalin filled container labeled with the patient's name and designated rgiht distal thigh. The specimen consists of a non-oriented ellipse of skin measuring 50l73v6 mm. The epidermal surface is unremarkable. The margin is inked green. The 12 o'clock and 6 o'clock tips are submitted in cassette 1. The remainder of the ellipse is serially sectioned and submitted in cassette 2-3. Jar 0. 0 1:56 PM CDT DERMATOPATHOLOGY LABORATORY Microscopic Description Specimen A. SKIN, right proximal forearm: Arising in the epidermis and extending into the dermis there are irregularly shaped aggregates of keratinocytes showing evidence of premature cornification. Specimen B. SKIN, rgt distal thigh: Arising in the epidermis and extending into the dermis there are irregularly shaped aggregates of keratinocytes showing evidence of premature cornification. This lesion is not present at the margin of the specimen. There are fibroblasts and collagen bundles oriented parallel to the skin surface with elongated blood vessels, some of which are oriented perpendicular to the skin surface. 0 1:56 PM CDT DERMATOPATHOLOGY LABORATORY Disclaimer An external and internal positive and negative controls are appropriate for the histochemical, immunohistochemical and immunofluorescence stain(s) in this case (if any), except where stated explicitly. The performance characteristics of the stain(s) cited in this report were developed and its performance characteristic determined by the Dermatopathology Laboratory at [facility], directed by Dr. Winnie Harvey. These tests need not be, and therefore are not, approved by the [place] Food and Drug Administration. The tests are used for clinical purposes. Billing Codes Specimen Charges Stain Charges 45601 80265 1 1 0 1:56 PM CDT DERMATOPATHOLOGY LABORATORY Embedded Images 0 1:56 PM CDT DERMATOPATHOLOGY LABORATORY Pathology/Cytology TISSUE SPECIMEN FROM SKIN / Unknown 06/18/2020 06/19/2020 7:53 AM CDT Miscellaneous samples (specimen) TISSUE SPECIMEN FROM SKIN / Unknown 06/18/2020 06/19/2020 7:53 AM CDT us Serafin Dunn MD LAB - PATHOLOGY/CYTOLOGY ORDER DIMA Final Result DERMATOPATHOLOGY LABORATORY [facility] - Department of Dermatology [facility] Medicine [address] [place] [address], [address] [phone] documented in this encounter Visit Diagnoses Not on filedocumented in this encounter Care Teams Head Up Operator Relationship Specialty Start Date End Date Rashad De La Cruz DO [address] [facility] [address] [place] [address] PCP - General 10/09/18 documented as of this encounter
--- OUTSIDE RECORDS SUMMARY | 2025-03-18 02:46 | XMS_ITS | Encounter Summary ---
Author Organization [facility] Address [address] [place] [address] Care Team Providers Care Casting Machine Control Board Operator Name Role Phone Rashad De La Cruz DO Primary Care Provider Encounter Details Date Type Department Care Team (Late st Contact Info) Description 08/11/[address] 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 DermPath Lab Received: 08/11/2020 06:30 AM Pathologist: Joanna Walker MD Specimens: A) - Skin, right lower sabianist B) - Skin, left anterior deltoid 0 1:27 PM PHOTOGRAPHY SPOTTER DERMATOPATHOLOGY LABORATORY Final Diagnosis Specimen A. SKIN, right lower sabianist: SQUAMOUS CELL CARCINOMA IN SITU, PRESENT AT THE BASE OF THE SPECIMEN (D04.39) (see microscopic description and comment) Specimen B. SKIN, left anterior deltoid: BENIGN VERRUCOUS KERATOSIS (L82.1) DERMAL SCAR (L90.5) 0 1:[address] [facility] DERMATOPATHOLOGY LABORATORY at 1327 PHOTOGRAPHY SPOTTER Clinical History A: BCCA vs SCCA. Path # [id number]. B: BCCA vs SCCA. Path # [id number]. 0 1:[address] [facility] DERMATOPATHOLOGY LABORATORY Gross Description Specimen A: Received is one formalin filled container labeled with the patient's name and designated right lower sabianist. The specimen consists of a shave biopsy measuring 4h4m5bn. Jar 0. Specimen B: Received is one formalin filled container labeled with the patient's name and designated left anterior deltoid. The specimen consists of a shave biopsy measuring 4r5l9fw. Jar 0. 0 1:[address] [facility] DERMATOPATHOLOGY LABORATORY Microscopic Description Specimen A. SKIN, right lower sabianist: The epidermis shows parakeratosis, full thickness disorderly maturation of keratinocytes, mitoses at different levels, and dyskeratotic cells. The lesion extends to the base of the biopsy. COMMENT: An invasive squamous cell carcinoma cannot be ruled out. Specimen B. SKIN, left anterior deltoid: Sections show hyperkeratosis, papillomatosis, hypergranulosis, and acanthosis. These histological findings can be seen in a verruca vulgaris or a seborrheic keratosis. There are adjacent fibroblasts and collagen bundles oriented parallel to the skin surface with elongated blood vessels, some of which are oriented perpendicular to the skin surface. 0 1:[address] [facility] DERMATOPATHOLOGY LABORATORY Disclaimer An external and internal positive and negative controls are appropriate for the histochemical, immunohistochemical and immunofluorescence stain(s) in this case (if any), except where stated explicitly. The performance characteristics of the stain(s) cited in this report were developed and its performance characteristic determined by the Dermatopathology Laboratory at [facility], directed by Dr. Winnie Harvey. These tests need not be, and therefore are not, approved by the [place] Food and Drug Administration. The tests are used for clinical purposes. Billing Codes Specimen Charges Stain Charges 41082 26557 1 1 0 1:[address] [facility] DERMATOPATHOLOGY LABORATORY Embedded Images 0 1:27 PM PHOTOGRAPHY SPOTTER DERMATOPATHOLOGY LABORATORY Pathology/Cytology TISSUE SPECIMEN FROM SKIN / Unknown 08/10/2020 08/11/2020 6:30 AM PHOTOGRAPHY SPOTTER Miscellaneous samples (specimen) TISSUE SPECIMEN FROM SKIN / Unknown 08/10/2020 08/11/2020 6:30 AM PHOTOGRAPHY SPOTTER us Serafin Dunn MD LAB - PATHOLOGY/CYTOLOGY ORDER DIMA Final Result DERMATOPATHOLOGY LABORATORY [facility] - Department of Dermatology [facility] Medicine [address] [place] [address], [address] [phone] documented in this encounter Visit Diagnoses Not on filedocumented in this encounter Care Teams Casting Machine Control Board Operator Relationship Specialty Start Date End Date Rashad De La Cruz DO [address] [facility] [address] [place] [address] PCP - General 10/09/18 documented as of this encounter
--- OUTSIDE RECORDS SUMMARY | 2025-03-18 02:46 | XMS_ITS | Encounter Summary ---
Author Organization [facility] Address [address] [facility] [place] [address] Care Team Providers Care Repairer Veneer Sheet Name Role Phone Rashad De La Cruz DO Primary Care Provider Encounter Details Date Type Department Care Team (Late st Contact Info) Description 07/24/2020 Lab Requisition [facility] DermPath Lab [address] [place] [address] Serafin Dunn MD [address] [place] [address] Social History Tobacco Use Types Packs/Day Years Used Date Smoking Tobacco: Never Assessed Sex and Gender Information Value Date Recorded Sex Assigned at Not on file 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 Gender Identity Not on file Sexual Orientation Not on file documented as of this encounter Plan of Treatment Not on file documented as of this encounter Procedures Procedure Name Priority Date/Time Associated Diagnosis Comments DERMATOPATHOLOGY Routine 07/22/2020 12:0 0 AM CEMENT FINISHING SUPERVISOR documented in this encounter Results * DERMATOPATHOLOGY (07/22/2020 12:00 AM CEMENT FINISHING SUPERVISOR) Case Report Dermatopathology Report Case: [id number] Authorizing Provider: Serafin Dunn MD Collected: 07/22/2020 12:00 AM Ordering Location: [facility] DermPath Lab Received: 07/24/2020 05:58 AM Pathologist: Katie Lu MD Specimen: Skin, right proximal forearm 0 2:25 PM CEMENT FINISHING SUPERVISOR DERMATOPATHOLOGY LABORATORY Final Diagnosis Specimen A. SKIN, right proximal forearm: DERMAL SCAR RESIDUAL SQUAMOUS CELL CARCINOMA NOT IDENTIFIED (L90.5) 0 2:25 PM CEMENT FINISHING SUPERVISOR DERMATOPATHOLOGY LABORATORY at 1425 CEMENT FINISHING SUPERVISOR Clinical History SCCA well diff. Path # [id number]. Check margins. 0 2:25 PM [facility] DERMATOPATHOLOGY LABORATORY Gross Description Specimen A: Received is one formalin filled container labeled with the patient's name and designated right proximal forearm. The specimen consists of a non-oriented ellipse of skin measuring 11a88q5jc. The epidermal surface consists of a centrally located 0f1o0rp previous biopsy site. The margin is inked green. The 12 o'clock and 6 o'clock tips are submitted in cassette 1. The remainder of the ellipse is serially sectioned and submitted in cassettes 2-3. Jar 0. 0 2:25 PM [facility] DERMATOPATHOLOGY LABORATORY Microscopic Description Specimen A. SKIN, right proximal forearm: There are fibroblasts and collagen bundles oriented parallel to the skin surface. There are elongated blood vessels, some of which are oriented perpendicular to the skin surface. No residual squamous cell carcinoma is identified. 0 2:25 PM [facility] DERMATOPATHOLOGY LABORATORY Disclaimer An external and internal positive and negative controls are appropriate for the histochemical, immunohistochemical and immunofluorescence stain(s) in this case (if any), except where stated explicitly. The performance characteristics of the stain(s) cited in this report were developed and its performance characteristic determined by the Dermatopathology Laboratory at [facility], directed by Dr. Winnie Harvey. These tests need not be, and therefore are not, approved by the [place] Food and Drug Administration. The tests are used for clinical purposes. Billing Codes Specimen Charges Stain Charges 68521 1 0 2:25 PM CEMENT FINISHING SUPERVISOR DERMATOPATHOLOGY LABORATORY Embedded Images 0 2:25 PM [facility] DERMATOPATHOLOGY LABORATORY Pathology/Cytolog y TISSUE SPECIMEN FROM SKIN / Unknown 07/22/2020 07/24/2020 5:58 AM CEMENT FINISHING SUPERVISOR us Serafin Dunn MD LAB - PATHOLOGY/CYTOLOGY ORDER DIMA Final Result DERMATOPATHOLOGY LABORATORY [facility] - Department of Dermatology [address], [address] [phone] documented in this encounter Visit Diagnoses Not on filedocumented in this encounter Care Teams Repairer Veneer Sheet Relationship Specialty Start Date End Date Rashad De La Cruz DO [address] [facility] [address] [facility] [place] [address] PCP - General 10/09/18 documented as of this encounter
--- OUTSIDE RECORDS SUMMARY | 2025-03-18 02:46 | XMS_ITS | Encounter Summary ---
Author Organization [facility] Address [address] [facility] [place] [address] Care Team Providers Care Superintendent Container Terminal Name Role Phone Rashad De La Cruz DO Primary Care Provider [phone] Encounter Details Date Type Department Care Team (Late st Contact Info) Description 05/05/2020 Lab Requisition [facility] DermPath Lab [address] [place] [address] Serafin Dunn MD [address] [address] Social History Tobacco Use Types Packs/Day Years Used Date Smoking Tobacco: Never Assessed Sex and Gender Information Value Date Recorded Sex Assigned at Not on file Legal Sex Male 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 Gender Identity Not on file Sexual Orientation Not on file documented as of this encounter Plan of Treatment Not on file documented as of this encounter Procedures Procedure Name Priority Date/Time Associated Diagnosis Comments DERMATOPATHOLOGY Routine 05/04/2020 12:0 0 AM CDT documented in this encounter Results * DERMATOPATHOLOGY (05/04/2020 12:00 AM CDT) Case Report Dermatopathology Report Case: [id number] Authorizing Provider: Serafin Dunn MD Collected: 05/04/2020 12:00 AM Ordering Location: [facility] DermPath Lab Received: 05/05/2020 07:32 AM Pathologist: Katie Lu MD Specimen: Skin, right distal thigh 0 5:25 PM CDT DERMATOPATHOLOGY LABORATORY Final Diagnosis Specimen A. SKIN, right distal thigh: SQUAMOUS PROLIFERATION (D48.5) (see microscopic description and comment) 0 5:25 PM CDT DERMATOPATHOLOGY LABORATORY at 1725 CDT Clinical History SCCA vs SK. Path # [id number]. 0 5:25 PM CDT DERMATOPATHOLOGY LABORATORY Gross Description Specimen A: Received is one formalin filled container labeled with the patient's name and designated right distal thigh. The specimen consists of a shave biopsy measuring 1i3q2mt. Jar 0. 0 5:25 PM CDT DERMATOPATHOLOGY LABORATORY Microscopic Description Specimen A. SKIN, right distal thigh: Sections show maturational disarray and nuclear pleomorphism of keratinocytes extending throughout the full thickness of the specimen. There is focal parakeratosis. The base of this lesion is not visualized. Additional deeper sections were obtained and reviewed. COMMENT: The histological differential diagnosis includes a regressing keratoacanthoma, which is favored, an irritated and inflamed benign keratosis, and an actinic keratosis. 0 5:25 PM CDT DERMATOPATHOLOGY LABORATORY Disclaimer An external and internal positive and negative controls are appropriate for the histochemical, immunohistochemical and immunofluorescence stain(s) in this case (if any), except where stated explicitly. The performance characteristics of the stain(s) cited in this report were developed and its performance characteristic determined by the Dermatopathology Laboratory at [facility], directed by Dr. Winnie Harvey. These tests need not be, and therefore are not, approved by the [place] Food and Drug Administration. The tests are used for clinical purposes. Billing Codes Specimen Charges Stain Charges 56297 1 0 5:25 PM CDT DERMATOPATHOLOGY LABORATORY Embedded Images 0 5:25 PM CDT DERMATOPATHOLOGY LABORATORY Pathology/Cytolog y TISSUE SPECIMEN FROM SKIN / Unknown 05/04/2020 05/05/2020 7:32 AM CDT us Serafin Dunn MD LAB - PATHOLOGY/CYTOLOGY ORDER DIMA Final Result DERMATOPATHOLOGY LABORATORY [facility] - Department of Dermatology Wrong Address Clerk Center/[place] [address], [facility] [phone] documented in this encounter Visit Diagnoses Not on filedocumented in this encounter Care Teams Superintendent Container Terminal Relationship Specialty Start Date End Date Rashad De La Cruz DO [address] [facility] [address] [place] [address] PCP - General 10/09/18 documented as of this encounter
--- OUTSIDE RECORDS SUMMARY | 2025-03-18 02:46 | XMS_ITS | Encounter Summary ---
Author Organization [facility] Address [address] [place] [address] Care Team Providers Care Centerless Grinder Name Role Phone Rashad De La Cruz DO Primary Care Provider [phone] Encounter Details Date Type Department Care Team (Late st Contact Info) Description 03/26/2020 Lab Requisition [facility] DermPath Lab [address] [place] [address] Serafin Dunn MD [address] [facility] [facility] [place] [address] Social History Tobacco Use Types Packs/Day Years Used Date Smoking Tobacco: Never Assessed Sex and Gender Information Value Date Recorded Sex Assigned at Not on file 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 Gender Identity Not on file Sexual Orientation Not on file documented as of this encounter Plan of Treatment Not on file documented as of this encounter Procedures Procedure Name Priority Date/Time Associated Diagnosis Comments DERMATOPATHOLOGY Routine 03/25/2020 12:0 0 AM CDT documented in this encounter Results * DERMATOPATHOLOGY (03/25/2020 12:00 AM CDT) Case Report Dermatopathology Report Case: [id number] Authorizing Provider: Serafin Dunn MD Collected: 03/25/2020 12:00 AM Ordering Location: [facility] Derm[facility] Lab Received: 03/26/2020 08:28 AM Pathologist: Sigrid Harvey MD Specimen: Skin, right thigh 0 4:53 PM CDT DERMATOPATHOLOGY LABORATORY Final Diagnosis Specimen A. SKIN, right thigh: DERMAL SCAR RESIDUAL SQUAMOUS CELL CARCINOMA NOT IDENTIFIED (L90.5) 0 4:53 PM CDT DERMATOPATHOLOGY LABORATORY at 1653 CDT Clinical History Biopsy proven WD SCCA. Path# [id number]. Check margin 0 4:53 PM CDT DERMATOPATHOLOGY LABORATORY Gross Description Specimen A: Received is one formalin filled container labeled with the patient's name and designated right thigh. The specimen consists of a non-oriented ellipse of skin measuring 21x9x4 mm. The epidermal surface is unremarkable. The margin is inked green. The 12 o'clock and 6 o'clock tips are submitted in cassette 1. The remainder of the ellipse is serially sectioned and submitted in cassette 2. Jar 0. 0 4:53 PM CDT DERMATOPATHOLOGY LABORATORY Microscopic Description Specimen A. SKIN, right thigh: There are fibroblasts and collagen bundles oriented parallel to the skin surface. There are elongated blood vessels, some of which are oriented perpendicular to the skin surface. No residual squamous cell carcinoma is identified. 0 4:53 PM CDT DERMATOPATHOLOGY LABORATORY Disclaimer An external and internal positive and negative controls are appropriate for the histochemical, immunohistochemical and immunofluorescence stain(s) in this case (if any), except where stated explicitly. The performance characteristics of the stain(s) cited in this report were developed and its performance characteristic determined by the Dermatopathology Laboratory at [facility], directed by Dr. Winnie Harvey. These tests need not be, and therefore are not, approved by the [place] Food and Drug Administration. The tests are used for clinical purposes. Billing Codes Specimen Charges Stain Charges 74364 1 0 4:53 PM CDT DERMATOPATHOLOGY LABORATORY Embedded Images 0 4:53 PM CDT DERMATOPATHOLOGY LABORATORY Pathology/Cytolog y TISSUE SPECIMEN FROM SKIN / Unknown 03/25/2020 03/26/2020 8:28 AM CDT us Serafin Dunn MD LAB - PATHOLOGY/CYTOLOGY ORDER DIMA Final Result DERMATOPATHOLOGY LABORATORY [facility] - Department of Dermatology Quality Assurance Supervisor [place] [address], [facility] [phone] documented in this encounter Visit Diagnoses Not on filedocumented in this encounter Care Teams Centerless Grinder Relationship Specialty Start Date End Date Rashad De La Cruz DO [address] [facility] [address] [place] [address] PCP - General 10/09/18 documented as of this encounter
--- OUTSIDE RECORDS SUMMARY | 2025-03-18 02:46 | XMS_ITS | Encounter Summary ---
Author Organization [facility] Address [address] [place] [address] Care Team Providers Care Medicare Biller Name Role Phone Rashad De La Cruz DO Primary Care Provider [phone] Encounter Details Date Type Department Care Team (Late st Contact Info) Description 02/19/2021 Lab Requisition [facility] [address] [place] [address] Serafin Dunn MD [address] [place] [address] Social History Tobacco Use Types Packs/Day Years Used Date Smoking Tobacco: Never Assessed Sex and Gender Information Value Date Recorded Sex Assigned at Not on file 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 Gender Identity Not on file Sexual Orientation Not on file documented as of this encounter Plan of Treatment Not on file documented as of this encounter Procedures Procedure Name Priority Date/Time Associated Diagnosis Comments DERMATOPATHOLOGY Routine 02/18/2021 3:33 AM CDT documented in this encounter Results * DERMATOPATHOLOGY (02/18/2021 3:33 AM CDT) Case Report Dermatopathology Report Case: [id number] Authorizing Provider: Serafin Dunn MD Collected: 02/18/2021 03:33 AM Ordering Location: [facility] Received: 02/19/2021 05:47 AM Pathologist: Katie Lu MD Specimens: A) - Skin, left helix B) - Skin, left ant shoulder 3:50 PM CDT DERMATOPATHOLOGY LABORATORY Final Diagnosis Specimen A. SKIN, left helix: BASAL CELL CARCINOMA, INFILTRATIVE PATTERN (C44.219) Specimen B. SKIN, left ant shoulder: EPIDERMAL NECROSIS SUGGESTIVE OF EXCORIATION (L98.499) HEALING SKIN CHANGES (L90.5) 1 3:50 PM CDT DERMATOPATHOLOGY LABORATORY at 1550 CDT Clinical History A: BCCA vs SCCA. Path# [id number]. B: BCCA vs SCCA. Path# [id number]. 3:50 PM CDT DERMATOPATHOLOGY LABORATORY Gross Description Specimen A: Received is one formalin filled container labeled with the patient's name and designated left helix. The specimen consists of a shave biopsy measuring [id number]. Jar 0. Specimen B: Received is one formalin filled container labeled with the patient's name and designated left ant shoulder. The specimen consists of a shave biopsy measuring [id number]. Jar 0. 3:50 PM CDT DERMATOPATHOLOGY LABORATORY Microscopic Description Specimen A. SKIN, left helix: Within the dermis there are nodular aggregates of basaloid cells associated with fibromyxoid stroma and epithelial-stromal clefts. At the advancing margin of the neoplasm, there are smaller angulated nests that infiltrate the dermis. Specimen B. SKIN, left ant shoulder: The epidermis is focally necrotic and covered with a scale-crust. There is fibrin at the base. There is adjacent epidermal hyperplasia beneath which there are vascular proliferation, fibroblasts, and an edematous stroma. 3:50 PM CDT DERMATOPATHOLOGY LABORATORY Disclaimer An external and internal positive and negative controls are appropriate for the histochemical, immunohistochemical and immunofluorescence stain(s) in this case (if any), except where stated explicitly. The performance characteristics of the stain(s) cited in this report were developed and its performance characteristic determined by the Dermatopathology Laboratory at [facility], directed by Dr. Winnie Harvey. These tests need not be, and therefore are not, approved by the [place] Food and Drug Administration. The tests are used for clinical purposes. Billing Codes Specimen Charges Stain Charges 56970 52069 1 1 1 3:50 PM CDT DERMATOPATHOLOGY LABORATORY Embedded Images 3:50 PM CDT DERMATOPATHOLOGY LABORATORY Pathology/Cytology TISSUE SPECIMEN FROM SKIN / Unknown 02/18/2021 3:33 AM CDT 02/19/2021 5:47 AM CDT Miscellaneous samples (specimen) TISSUE SPECIMEN FROM SKIN / Unknown 02/18/2021 3:33 AM CDT 02/19/2021 5:47 AM CDT us Serafin Dunn MD LAB - PATHOLOGY/CYTOLOGY ORDER DIMA Final Result DERMATOPATHOLOGY LABORATORY [facility] - Department of Dermatology [facility] Specialized Medicine [address] [place] [address], [address] [phone] documented in this encounter Visit Diagnoses Not on filedocumented in this encounter Care Teams Medicare Biller Relationship Specialty Start Date End Date Rashad De La Cruz DO [address] [facility] [address] [place] [address] PCP - General 10/09/18 documented as of this encounter
[2025-03-18] MEDS: LACTATED RINGERS 1,000 ML 30 ML IV CONT ×3 (12:00→17:05)
[2025-03-18] MEDS: ACETAMINOPHEN 500 MG TABLET 1000 MG PO (12:01)
[2025-03-18] MEDS: KETOROLAC 15 MG/ML VIAL (*BKC) IV PUSH (12:01)
--- NOTE | 2025-03-18 12:48 | P.PNAN_ITS ---
Anes - Initial Pre Proc Eval Procedure: Operation Date: 03/18/25 13:00 Proposed Procedures p Robotic Assisted Laparoscopic Left Inguinal Hernia Repair with Mesh, Possible Right Inguinal Hernia Repair with Mesh - Willie Aquino MD s Excision Scrotal Skin Lesion - Willie Aquino MD Date/Time: 03/18/25 12:48 Surgeon: Willie Aquino MD Pre Op Diagnosis: Lt Ing hernia, Scrotal Skin lesion Patient Data Age: 74 Gender: M Height: 1.83 m Weight: 96.1 kg Last Vital Signs Temp 36.9 C 03/18/25 11:59 Pulse 55 L 03/18/25 11:59 BP 139/84 03/18/25 11:59 Pulse Ox 97 03/18/25 11:59 O2 Del Method Room Air 03/18/25 11:59 Allergies Allergy/AdvReac Type Severity Reaction Status Date / Time No Known Allergies Allergy NONE Verified 03/18/25 11:58 Home Medications ?Medication ?Instructions ?Recorded ?Confirmed ?Type folic acid 1 mg tablet 1 mg PO DAILY #90 tabs 11/17/23 03/18/25 Rx tamsulosin 0.4 mg capsule 0.4 mg PO DAILY #90 caps 05/07/24 03/18/25 Rx hydrochlorothiazide 12.5 mg tablet 25 mg (2 x 12.5 mg) PO DAILY #180 11/29/24 03/18/25 Rx tabs lisinopril 40 mg tablet See Rx Instructions .Route 02/28/25 03/18/25 Rx .COMPLEX #90 tabs diltiazem HCl 360 mg capsule,24 360 mg PO HS 03/13/25 03/18/25 History hr,extended release Patient hx anesthesia problems: none Family hx anesthesia problems: none Results Review: All pre-operative results and documents have been reviewed as part of the pre- operative evaluation. 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 Hypernatremia Hyperglycemia Gastro-esophageal reflux disease without esophagitis Encounter for screening for malignant neoplasm of prostate Annual physical exam Olecranon bursitis, left elbow Sciatica Inguinal hernia Elevated hemoglobin Abdominal wall mass of suprapubic region Low folate History of colon polyps CRD (chronic renal disease), stage III Hyponatremia Essential (primary) hypertension Other hyperlipidemia Squamous cell skin cancer (~12/2019) Family History Family History Mother Hypertension Cancer Cerebrovascular accident Sibling Hypertension Pancreatic cancer Father Lung cancer Social History Social History Smoking status: Never smoker Second hand tobacco smoke exposure: No Alcohol intake: current Drinks per week: 7 Alcohol use details: BEERS Substance use: never Substance use type: does not use Do You Feel Safe in your Home?: Yes Lack of Transportation: No Lack of Food: Never True Current Housing: I Have Housing Concerned About Future Housing: No Difficulty Paying Gas/Electric Bills: No Difficulty Paying for Meds: No Currently Unemployed: No Education: Associate Degree Difficulty w/ Childcare or Family Care: No Living arrangements: with family Occupation/Education: retired 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 Gender identity (if verbalized by the patient): Male Spiritual care concerns: No Agree to blood products: Yes Anes - Eval Final PreProcedure Day of Procedure 03/18/25 12:48 Patient weight: overweight Heart: regular rate and rhythm Lungs: clear to auscultation Airway: Mallampati scale class II Neurological: alert and oriented Last oral intake: >/= 8 hours ASA classification: III Emergent: no Anesthetic plan: proceed Anesthesia type and monitoring: general ETT and standard monitoring Results Review: All pre-operative results and documents have been reviewed as part of the pre- operative evaluation. Informed Consent: The patient's anesthetic plan and its attendant risks and benefits were discussed with the patient/family/POA. Questions were solicited and answers provided to the satisfaction of the patient/family/POA.
--- NOTE | 2025-03-18 12:56 | WPDHPUPDATE1 ---
History and Physical Update Update Date/Time: 03/18/25 12:56 History and Physical has been reviewed, including an updated exam of the patient. There are NO changes in the patient's condition. Risks, benefits, and alternatives have been discussed and questions answered. Patient agrees to proceed with procedure.
[2025-03-18] MEDS: ceFAZolin 2 GM/D5W 50 ML 2 GM/50 ML BAG IVPB (13:19)
[2025-03-18] MEDS: LIDO 1%/EPINEPHRINE 1:100,000 50 ML VIAL 30 ML INFILTRATE (14:12)
--- NOTE | 2025-03-18 15:46 | S_PTH ---
PATIENT: Ruy Feliz LOC: [facility] U#:[id number] AGE/SX: 74/M ROOM: RE03/18/[address]: Willie Aquino MD : 1950 BED: DIS: 03/18/2025 SPEC #: [id number] RECD: 03/19/25 10:08 STATUS: JOSAFAT REQ #: [id number] EBONY: 03/18/25 15:[address]: Willie Aquino DEPT: [facility] Surgical RECD BY: Risa Ramos ENTERED: 03/19/25 10:08 SP TYPE: Surgical OTHR DR: Agus Devries DO Tissues: A - Skin Procedures: Hematoxylin and Eosin Stain Gross and Microscopic Level 4
--- NOTE | 2025-03-18 15:53 | SUR.OPER ---
specimen measures 2 x 1
[2025-03-18] MEDS: fentaNYL CITRATE INJ (*CRX) 100 MCG/2 ML VIAL 25 MCG IV PUSH ×2 (17:03→17:21)
[2025-03-18] MEDS: oxyCODONE HCL (*CRX) 5 MG TAB IR PO (17:21)
--- NOTE | 2025-03-18 18:17 | SUR.PHASEII ---
PATIENT REPORTS FEELING SHAKY OFF AND ON BUT IS LESSENING WITH TIME. ALSO REPORTS FEELING LIGHT-HEADED. WILL WAIT UNTIL LIGHT-HEADEDNESS SUBSIDES BEFORE HE GETS UP.
--- NOTE | 2025-03-18 19:49 | SUR.PHASEII ---
pt was able to finally urinate at 1930.
--- NOTE | 2025-03-19 11:35 | W.PM.PROC2 ---
Procedure Note - Detailed Date of Procedure 03/18/25 Pre-op Diagnosis Lt Ing hernia, Scrotal Skin lesion Post-op Diagnosis Other (Incarcerated left inguinal hernia, non incarcerated right inguinal hernia, scrotal skin lesion.) Procedure Performed Robotic assisted laparoscopic bilateral inguinal hernia repair with Bard 3D mid weight mesh Excision of right upper scrotal skin lesion (2x1 cm) Surgeon Willie Aquino MD Reconciliation Manager Osvaldo OLIVA Anesthesia General Indications Patient initially presented with a reducible left inguinal hernia. He had a questionable right inguinal hernia on exam. He was scheduled for a reducible left inguinal hernia repair robotically with possible right inguinal hernia repair robotically. On examination when he came in for surgery he had an incarcerated left inguinal hernia without evidence of bowel involvement. He presents now for robotic assisted laparoscopic incarcerated left inguinal hernia repair with mesh, possible right inguinal hernia repair with mesh, and excision of a pedunculated skin lesion on the upper right scrotal area. Findings Patient had a large incarcerated left inguinal hernia with fatty tissue incarcerated within the indirect left inguinal defect. No bowel was incarcerated. Laparoscopic evaluation he was also seen to have a smaller indirect right inguinal hernia without incarcerated contents. The small the skin lesion measured 2x1cm and had a stalk which only measured about 3mm in diameter at the base. Description of Procedure After informed consent was obtained patient brought to the operating room was placed supine position and general endotracheal anesthesia was administered. The abdomen and bilateral groin regions and scrotum was then prepped and draped usual sterile fashion. A time-out was then performed correctly identifying the patient as well as the procedure to be performed. Site marking was verified. He was given perioperative IV antibiotics. First started by entering the abdomen left upper quadrant rising a 5mm Optiview port. Once inside the abdomen insufflated to adequate pneumoperitoneum of 15mmHg of CO2. Looking down to the groins I did see an indirect incarcerated left inguinal hernia with adipose tissue within the hernia sac and inguinal canal. There is no involvement of the bowel. On the right side there was a small indirect non incarcerated inguinal hernia. I then placed additional robotic trocar ports across the mid abdomen. The robot was then brought to the patient's bedside and docked. Robotic arms were then attached the robotic ports and then robotic instruments were advanced into the abdomen under direct visualization. I then scrubbed out the procedure sent down the robotic console to perform the dissection. I made a preperitoneal flap across the lower abdomen starting just anterior medial to the right anterior superior iliac spine extending it over to the same area on the left side of the abdomen. I then dissected this preperitoneal space distally on the right side dissecting all the way down to the pubic tubercle and exposing the inferior epigastric vessels. This definitely was an indirect non incarcerated right inguinal hernia. I then dissected out the hernia sac 0 out of the inguinal canal which was easy as this was a small inguinal hernia sac. The vas deferens and testicular vessels work preserved without injury. Small cord lipoma was dissected free of the cord structures and resected and removed from the abdomen. I then took down the bladder in the preperitoneal plane and dissected all the way down to the pubic pubic symphysis in the midline. I then dissected down into the space of Retzius for couple cm bilaterally. I exposed the left pubic tubercle and then dissected out the large indirect left inguinal hernia sac. I very carefully dissected free from the site attached cord structures and preserve the vas deferens and testicular vessels. Prior to creating preperitoneal flap reduce the fatty tissue contents of the incarcerated left inguinal hernia. That fatty tissue was hemostatic after removing get and freeing it from the hernia sac. Once I had the left inguinal hernia sac reduced I then dissected the peritoneal flap bilaterally up onto the psoas muscles so that the mesh would lay nicely. I did dissect a larger cord lipoma and the left inguinal canal and then this was resected and removed from the abdomen as well. I then felt that extra-large pieces of Bard 3D mid weight mesh for the right and left sides would be appropriate. A right-sided mesh as well as a left-sided mesh was then placed into the dissected space covering the home myopectineal orifice bilaterally. The right-sided mesh was then secured to the tissues around the right pubic tubercle initially with a 2-0 Vicryl suture and then the lateral part of the mesh was secured to the muscle anterior medial to the right anterior superior iliac spine. Additional suture was then placed in the area the direct space to further secure the mesh. The left-sided mesh was then secured the left side with a 2-0 Vicryl suture at the pubic tubercle. The meshes overlapped in the midline above the pubic symphysis. The left-sided mesh was secured to the muscle anterior medial to left anterior suprailiac spine with a 2-0 Vicryl suture. Again a suture was then placed at the potential direct space as well. Both meshes laid out very nicely secured in the preperitoneal space. I then closed the peritoneal flap by placing a running 2-0 absorbable V lock suture. The proximal edges the mesh did not roll up with closure of the peritoneal flaps. The large left inguinal hernia sac was tacked up with the closure of the peritoneal flap. No holes were made in the peritoneum. Then checked all the bowel in the fatty tissue and it was all hemostatic. No bowel injury was noted. I then removed the robotic instruments from the abdomen and undocked the robot. I then scrubbed back into the procedure and proceeded to close the 8mm periumbilical trocar port fascial defect as well as the 12mm left upper quadrant trocar port fascial defect with a 0 Vicryl suture laparoscopically with the suture Passer. All the ports were removed and the abdomen was allowed to decompress in these fascial sutures were tied down. I irrigated out the port sites sterile saline solution hemostasis was good. I then closed all the port sites issues at the skin level utilizing a running subcuticular 4-0 Monocryl suture. All incisions were then cleaned and then skin glue was applied. I then approached removing the skin lesion in the upper right side of the scrotum. This was a pedunculated skin lesion measuring 2x1cm. It narrowed down to a stalk which was about 3mm in diameter. I simply used a pair Metzenbaum scissors to divide the skin at the base of the stalk where it met the scrotum. The specimen was passed off table sent to pathology for examination. Hemostasis was achieved in the very small incision utilizing judicious electrocautery. The resulting incision was so small that did not need to be closed and was superficial so I just placed antibiotic ointment onto the wound after hemostasis was good and then dressed with a Band-Aid. The patient tolerated the procedure well no complications. All sponges, needles, and instrument counts were correct at the end procedure. EBL was _25__cc. The patient was awakened and taken to recovery in stable and satisfactory condition. Implants Bard 3D mid weight mesh extra-large [id number] bilateral. Estimated Blood Loss 25 Drains No Packing No Pathology Yes (Scrotal skin lesion sent to pathology) Complications No immediate complications Condition Stable Disposition PACU [facility] Billing Surgery - Charge Forward: Surgery Billing
== END 2025-03-18 19:45 | disposition home or self-care (01) ==
PROVIDERS: PCP Internal Medicine; Visit Provider Surgery
PROC: 8E0Y4CZ Robotic Assisted Procedure of Lower Extremity, Percutaneous Endoscopic Approach (ICD-10-PCS; CPT 49650; principal; 2025-03-18 13:00)
PROC: (CPT 49650; 2025-03-18 13:00)
DX: K40.90 Unilateral inguinal hernia, without obstruction or gangrene, not specified as recurrent (principal); K40.30 Unilateral inguinal hernia, with obstruction, without gangrene, not specified as recurrent; Q27.39 Arteriovenous malformation, other site; E87.1 Hypo-osmolality and hyponatremia; E87.0 Hyperosmolality and hypernatremia; R73.9 Hyperglycemia, unspecified; K21.9 Gastro-esophageal reflux disease without esophagitis; I12.9 Hypertensive chronic kidney disease with stage 1 through stage 4 chronic kidney disease, or unspecified chronic kidney disease; N18.30 Chronic kidney disease, stage 3 unspecified; E78.49 Other hyperlipidemia; Z86.0100 Personal history of colon polyps, unspecified; Z85.828 Personal history of other malignant neoplasm of skin; Z80.1 Family history of malignant neoplasm of trachea, bronchus and lung; Z80.0 Family history of malignant neoplasm of digestive organs; Z82.49 Family history of ischemic heart disease and other diseases of the circulatory system
CPT/HCPCS: 49650; 11422; S2900; 88305; A9270; C1781; J0690; J1100; J1596; J1885; J2003; J2004; J2250; J2371; J2405; J2704; J3010; J7030; J7120